=== PATIENT | male | born 1945 | race Caucasian/White ===

== ENCOUNTER 2016-05-17 08:30 | Day surgery (SDC) | payer MEDICARE, MEDICAID ==
[~2016-05-17] VITALS: Ht 175.3 cm; Wt 69.3 kg
[2016-05-17] VITALS (8 sets, daily range): BP systolic 123–180; BP diastolic 71–104; PULSE 73–86; RESP 13–18; O2SAT 97–98
[~2016-05-17 08:30] MED LIST: ALBU8.5H2 INHALATION; ASPI325T32 PO; CARV6.252 PO; CeFAZolin Inj 2 GM in IV Premix 1 EACH IV ONE; HYDR-4003 PO
[2016-05-17] MEDS ORDERED: Ondansetron 2 mg/mL 2 mL Inj ONE (08:31)
[2016-05-17] MEDS ORDERED: fentaNYL-PF 50 mCg/mL 2 mL Inj ONE (08:31)
[2016-05-17] MEDS ORDERED: Rocuronium 10 mg/mL 5 mL Inj ONE (08:31)
[2016-05-17] MEDS ORDERED: Glycopyrrolate 0.2 mg/mL 5 mL Inj ONE (08:31)
[2016-05-17] MEDS ORDERED: Propofol 10,000 mCg/mL 20 mL Inj ONE (08:31)
[2016-05-17] MEDS ORDERED: Ropivacaine-PF 0.5% 30 mL Inj ONE (08:31)
[2016-05-17] MEDS ORDERED: Neostigmine 1 mg/mL 5 mL Inj ONE (08:31)
[2016-05-17] MEDS: Lactated Ringer's 1,000 ML IV SCH ×2 (09:01→11:06)
--- NOTE | 2016-05-17 10:23 | PCM.HPANE ---
Patient Data Surgeon Admitting Provider: Attending Provider:Omero Zeng DO Primary Care Physician:Afshin Rincon Other Provider:Nicholas Land Anesthesia Reason for Visit Right Rotator Cuff Tear Ht/WT & BMI Height (Feet): 5 Height (Inches): 9 Weight (Kilograms): 72.1 Body Mass Index 23.00 Allergies Coded Allergies: No Known Allergies (Unverified , 05/11/16) Past Anesthesia History Anesthesia History: Denies:: Anesthesia Reactions Diabetes History Hx Diabetes?: No Medications Blood Thinner: Aspirin Hypertension Medication: Yes Home Meds Incl Beta Brandon: Yes Date Beta Brandon Taken: May 17, 2016 Reported Medications Albuterol HFA (Proair HFA)8.5 Gm Hfa.aer.ad2 Puffs INHALATION Q4H PRN For Shortness of Breath #1 INHALER 05/11/16 Carvedilol 6.25 Mg Tablet6.25 Mg PO BID Ref 0 05/11/16 Aspirin 325 Mg [id number] Mg PO DAILY #1 BOTTLE 05/11/16 Discontinued Reported Medications Hydrocodone-Acetaminophen 5-325 mg 1 Each Tablet1 Tablet PO Q8H PRN For Pain Ref 0 05/11/16 History History of ENT Problems?: No Hx of Heart Problems?: Yes Cardiovascular History: Positive for:: Atrial Fibrillation Denies:: Valvular Heart Disease (echo 2014- ef 60-65%) Hx of Respiratory Problem?: Yes Respiratory History: Positive for:: Asthma Use of Inhalers / NEBS Denies:: Oxygen Administration Use of C-PAP Machine Other History/Comment WELL CONTROLLED Hx Neurologic Problems?: No Hx of GI Problems?: No Hx of Problems?: No Hx Musculoskeletal Problems?: Yes Musculoskeletal History: Positive for:: Musculoskeletal Trauma (right shoulder current admission problem) Osteoarthritis Hx of Psycho/Social Problems?: No Psycho Social History: Denies:: Anxiety Bipolar Disorder Hx Depression Suicide Attempt Hx Surgeries?: Yes Other History/Comment KNEE SCOPE Hx Any Other Health Problems?: Yes Other History: Denies:: Cancer Hx Diabetes: No Smoking Status: Never Smoker Stop/Bang S-Snoring: Do You Snore Loudly: No T-Tired: feel tired, fatigued: Yes O-Obsered: Observed not breath: No P-Blood Pressure: treated: No B- Body Mass Index > 35 kg/m2: No A- Age over 50: Yes N- Neck Large Circumference: No G- Gender Male: Yes ANASTASIA Total Score: 3 ANASTASIA Risk Assessment: High Risk, =/>3 Yes ANASTASIA Category 3: Yes Risk Assessment Category Category 1A: Patient has history of documented sleep apnea, and HAS NOT received any narcotic, sedative or anesthesia administration during this stay. Category 1B: Patient has history of documented sleep apnea, and HAS received any narcotic , sedative or anesthesia administration during this stay Category 2: Patient has SUSPECTED Obstructive Sleep Apnea, and HAS received any narcotic , sedative or anesthesia administration during this stay. Category 3: Patient has SUSPECTED Obstructive Sleep Apnea and HAS NOT received narcotic, sedative or anesthesia administration during this stay. Category 4: Outpatient in Procedural Areas with known sleep apnea or who screen positive for High Risk via the STOP/BANG questionnaire. Exam Exam General Appearance: Alert, Oriented X3, Cooperative HEENT/AIRWAY: MP 1 Lungs: Clear to Auscultation Heart: Exam Unremarkable Plan Impression Patient chart reviewed, patient interviewed and anesthestic plan with risks, benefits, and alternatives discussed, and informed consent obtained. Orlin Jacome MD May 17, 2016 08:37 Julius Rudolph MD May 17, 2016 10:23
[2016-05-17] MEDS ORDERED: Lactated Ringer's 500 ML IV PRN (11:28)
[2016-05-17] MEDS ORDERED: Lactated Ringer's 1,000 ML IV SCH (11:28)
[2016-05-17] MEDS ORDERED: Lidocaine 1%-Epi 1:100,000 20 mL Inj INFILTRATE ONE (11:30)
[2016-05-17] MEDS ORDERED: Phenylephrine 10,000 mCg/mL Inj IVPUSH PRN (11:30)
[2016-05-17] MEDS ORDERED: Dexamethasone 4 mg/mL Inj IVPUSH PRN (11:30)
[2016-05-17] MEDS ORDERED: EPHEDrine Sulfate 50 mg/mL Inj IVPUSH PRN (11:30)
[2016-05-17] MEDS ORDERED: MetoCLOpramide 5 mg/mL 2 mL Inj IVPUSH PRN (11:30)
[2016-05-17] MEDS ORDERED: Ondansetron 2 mg/mL 2 mL Inj IVPUSH PRN (11:30)
[2016-05-17] MEDS ORDERED: fentaNYL-PF 50 mCg/mL 2 mL Inj IVPUSH PRN (11:30)
[2016-05-17] MEDS ORDERED: Ketorolac 15 mg/mL Inj IVPUSH ONE (13:15)
--- NOTE | 2016-05-17 13:28 | PCM.ANEP1 ---
Post Anesthesia Phase 1 PACU Phase 1 Assessment Vital Signs Vital Signs Date Time Temp Pulse Resp B/P Pulse Ox O2 Delivery O2 Flow Rate FiO2 05/17/16 13:18 73 15 163/91 97 Room Air 05/17/16 13:10 86 16 172/96 05/17/16 13:05 82 16 168/104 97 Room Air 05/17/16 13:00 36.7 86 18 168/99 97 Room Air 05/17/16 09:13 36.5 82 16 143/71 98 Room Air Anesthetic Administered: GA, Regional Block Level of Alertness: Awake, talking CHA's with Equal Strength: Yes Pain: No Nausea or Vomiting: No Oxygen Delivery: Room Air Lungs: Clear to Auscultation Orlin Jacome MD May 17, 2016 13:28
--- NOTE | 2016-05-17 13:28 | PCM.ANEP2 ---
Post Anesthesia Evaluation ASA/CMS Post Anesthesia VS in Patient's Normal Range?: Yes Resp Stable; Airway Patent?: Yes CV Function & Hydration Stable: Yes Mental Status Recovered?: Yes Pain control Satisfactory?: Yes N/V Control Satisfactory?: Yes Orlin Jacome MD May 17, 2016 13:28
[2016-05-17] MEDS: HYDROmorphone 1 mg/mL Inj IVPUSH PRN ×2 (13:29→13:37)
--- NOTE | 2016-05-17 14:29 | OP ---
[address] [address] OPERATIVE REPORT PATIENT: NIALL KNOWLES : 1945 MR#: [id number] ADMIT: 05/17/2016 JOB ID: [id number] DATE OF SURGERY: 05/17/2016 PREOPERATIVE DIAGNOSIS(ES): 1. 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 2. Biceps tendon tear. POSTOPERATIVE DIAGNOSIS(ES): 1. 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 2. Biceps tendon partial rupture. PROCEDURES: Right shoulder video arthroscopy with subacromial decompression, arthroscopic distal clavicle excision, and arthroscopic biceps tenotomy. SURGEON: Omero Zeng DO TELEGRAPH EQUIPMENT MAINTAINER: Jose Rafael Glass DO INDICATIONS: The patient is a 71-year-old male with right shoulder pain which began in June when he was moving tires, working on his house. He tried physical therapy and a cortisone injection, which gave him some relief, but his pain has returned. He had an MRI which was concerning for a biceps tear and possible rotator cuff tear, as well as the AC joint arthritis and impingement. We discussed treatment options for this. He wished to proceed with a shoulder arthroscopy. We discussed the risks, benefits, and possible complications of surgery including, but not limited to injury to nerves and vessels, infection, bleeding, incomplete relief of symptoms, stiffness, need for additional procedures. The patient had a good understanding, all questions were answered, and he wished to proceed. PROCEDURE IN DETAIL: The patient was brought to the operating room. He was given a preoperative antibiotic, interscalene block, and general anesthetic, and placed comfortably into the beach chair position. The right shoulder was sterilely prepped and draped. An incision was made over the posterolateral shoulder and a posterolateral portal was placed into the glenohumeral joint. His humeral head was found to be free of any articular pathology. His glenoid had some minor C2 chondromalacia. His biceps was found to be torn about 75%. His subscapularis had a small partial thickness tear. An anterior portal was established under needle localization and the biceps was debrided and released, performing a biceps tenotomy. The rotator cuff was inspected and found to have some partial tearing, but no discrete full-thickness tear appreciated from the articular side. The scope was then removed and replaced in the subacromial space, and a lateral portal was established. We then removed the bursa from the subacromial space. He was noted to have a moderately large subacromial spur. This was resected with a bur, coplaning the acromion, removing about 4 mm of bone. His rotator cuff was inspected and found to be intact from the bursal side. His distal clavicle was then addressed. He had significant spurring on the inferior portion of the distal clavicle which was coplaned with the bur. Then an anterior portal was used and about 8 mm of distal clavicle was resected. Care was taken to ensure that this was removed in its entirety, anterior to posterior, superficial to deep, and that the superior capsule was not disrupted. The scope was then removed. The portals were closed with interrupted nylon suture. Sterile dressings were applied. The patient tolerated the procedure well. BLOOD LOSS: Minimal. POSTOPERATIVE PROTOCOL: Have the patient use arm sling for comfort and begin using his arm as he is able to tolerate. Ice and elevate. Follow up in two weeks or sooner if needed. He was given a prescription for Tylenol No. 3 for pain, as well as 20 Dilaudid 2 mg tablets for breakthrough pain if needed.
[2016-05-17] MEDS: Acetaminophen IV 1,000 MG in IV Premix 1 EACH IV PRN (14:30)
[2016-05-18] MEDS ORDERED: Lactated Ringer's 1,000 ML IV SCH (05:00)
== END 2016-05-17 23:59 | disposition home or self-care (01) ==
LOC: SAS 08:30
PROVIDERS: ATTEND Orthopaedic Surgery
DX: M75.41 Impingement syndrome of right shoulder (principal); M19.011 Primary osteoarthritis, right shoulder; M75.21 Bicipital tendinitis, right shoulder; M25.511 Pain in right shoulder; M75.111 Incomplete rotator cuff tear or rupture of right shoulder, not specified as traumatic; J45.909 Unspecified asthma, uncomplicated; I48.2 Chronic atrial fibrillation; R53.82 Chronic fatigue, unspecified; I10 Essential (primary) hypertension; Z79.51 Long term (current) use of inhaled steroids; Z79.82 Long term (current) use of aspirin
CPT/HCPCS: 29824; 29826; 29828; J0131; J0171; J0690; J1170; J1885; J2250; J2405; J2710; J2795; J3010; J7120